=== PATIENT | male | born 1985 | race Caucasian/White ===

== ENCOUNTER 2023-05-03 18:03 | Emergency (ER) | payer BC ==
[2023-05-03 19:13] LABS: BARBITURATE SCREEN,URINE NEGATIVE (CUTOFF=200); BENZODIAZEPINES SCREEN,URINE NEGATIVE (CUTOFF=150); BUPRENORPHINE SCREEN,URINE NEGATIVE (CUTOFF=10); METHADONE SCREEN, URINE NEGATIVE (CUT0FF=200); METHAMPHETAMINES SCREEN, URINE NEGATIVE (CUTOFF=500); OXYCODONE SCREEN,URINE NEGATIVE (CUT0FF=100); PROPOXYPHENE SCREEN,URINE NEGATIVE (CUTOFF=300); THC SCREEN,URINE 20 NG/ML NEGATIVE (CUTOFF=50)
[2023-05-03 19:28] LABS: AMPHETAMINES SCREEN, URINE NEGATIVE (CUTOFF=500)
== END 2023-05-03 19:40 | disposition home or self-care (01) ==
LOC: JD.ED 18:03
DX: K04.7 Periapical abscess without sinus (principal); Z88.5 Allergy status to narcotic agent
CPT/HCPCS: 80306; 99283